=== PATIENT | female | born 1985 | race Caucasian/White ===

== ENCOUNTER 2017-05-22 19:42 | Inpatient (IN) | payer OTHER ==
[2017-05-22] VITALS (36 sets, daily range): BP systolic 109–155; BP diastolic 59–90; PULSE 79–225; RESP 18; TEMP 97.9
[~2017-05-22 19:42] MED LIST: DIPHTH/TETANUS/ACEL PERTUSSIS (BOOSTER) 0.5 ML VIAL/PFS IM ONE; MEASLES, MUMPS, RUBELLA VACCINE 0.5 ML VIAL SQ ONE; PERC5TAB12 PO; PREN0.01 PO
[2017-05-22] MEDS ORDERED: LACTATED RINGER'S 1000 ML INJ 1,000 ML IV SCH (20:08)
[2017-05-22] MEDS ORDERED: LACTATED RINGER'S 1000 ML INJ 1,000 ML IV PRN (20:08)
--- NOTE | 2017-05-22 20:08 | PD ---
HPI Chief Complaint Contractions Date Seen: May 22, 2017 Time Seen: 20:05 Travel History International Travel<30 Days: No Contact w/Intl Traveler<30Days: No Known Affected Area: No History of Present Illness HPI 31-year-old at 41 weeks and 1 day comes in complaining of worsening contractions. Patient had intermittent contractions this afternoon and was 5 cm in the office at 3 PM and in the past couple of hours contractions have increased in intensity. Her last 2 deliveries went very quick and she would like to have an epidural with this one. She is a history of a hemorrhage with her first child but otherwise no issues with her previous pregnancies and has no consultations. History Past Medical History Narrative Medical Asthma on albuterol Obstetric History Obstetric History Spontaneous vaginal delivery 2 Miscarriage Past Surgical History Surgical History: No Previous Surgery Family History Family History: Negative Social History Alcohol Use: No Tobacco Use: No Substance Abuse: No Allergies-Medications (Allergen,Severity, Reaction): Coded Allergies: Sulfa (Sulfonamide Antibiotics) (Unverified Allergy, Severe, 05/22/17) penicillin G (Unverified Allergy, Severe, 05/22/17) Home Meds Reported Medications Oxycodone-Acetaminophen 5-325 mg (Percocet 5-325 mg)5 Mg/325 Mg Tab1 Tab PO Q4H #30 TAB 03/01/14 Multivit/Min/Fol Ac/Iron/Pren ( Vit ( Plus)) Tab1 Tab PO DAILY continue while 02/27/14 Review of Systems Except as stated in HPI: all other systems reviewed are Neg Physical Exam Narrative GENERAL: Well-nourished, well-developed patient. SKIN: Warm and dry. HEAD: Normocephalic and atraumatic. EYES: No scleral icterus. No injection or drainage. ENT: No nasal drainage noted. Mucous membranes pink. Airway patent. NECK: Supple, trachea midline. No JVD. CARDIOVASCULAR: Regular rate and rhythm without murmurs, gallops, or rubs. RESPIRATORY: Breath sounds equal bilaterally. No accessory muscle use. ABDOMEN/GI: Abdomen soft, non-tender, bowel sounds present, no rebound, no guarding Gravid to [38-] weeks size Fundal Height: [-] GENITOURINARY: External Genitalia: intact and normal in appearance BUS glands: [-Normal] Cervix: [-Mid position] Dilatation: [-5-6] Effacement: [100-] Station: [-2] Presentation: [Vertex-] Membranes: [intact ] Uterine Contractions: [-Every 5] FHT's: Category: [1-] Baseline: [-140] Reactive: [Moderate-] Variability: [Moderate-] Decels: [-Absent] EXTREMITIES: No cyanosis or edema. BACK: Nontender without obvious deformity. No CVA tenderness. NEUROLOGICAL: Awake and alert. Motor and sensory grossly within normal limits. Five out of 5 muscle strength in all muscle groups. Normal speech. Data Data Vital Signs Reviewed: Yes MDM Plan 31-year-old who is at 41 weeks and 1 day who is in active labor Group B strep is negative Patient desires epidural Diagnosis Diagnosis: Primary Impression: 41 weeks gestation of Additional Impressions: Intact amniotic membranes Irregular uterine contractions Екатерина Pimentel MD May 22, 2017 20:08
[2017-05-22] MEDS ORDERED: LIDOCAINE HCL 1% 50 ML VIAL INFIL PRN (20:15)
[2017-05-22] MEDS ORDERED: OXYTOCIN 30 UNITS-500ML PREMIX 500 ML IV ONE (20:15)
[2017-05-22] MEDS ORDERED: LIDOCAINE HCL 1% 50 ML VIAL I-DERMAL PRN (20:15)
[2017-05-22] MEDS ORDERED: CITRIC ACID-SODIUM CITRATE LIQ 30 ML UDC PO SCH (20:15)
[2017-05-22] MEDS ORDERED: SODIUM CHLORID 0.9% 500 ML INJ 500 ML IV PRN (20:15)
[2017-05-22] MEDS ORDERED: MINERAL OIL 10 ML VIAL TOPICAL PRN (20:15)
[2017-05-22] MEDS ORDERED: fentaNYL 2MCG-BUPIV 0.125% INJ 100 ML ONE (20:22)
[2017-05-22] MEDS ORDERED: SODIUM CHLOR 0.9% 1000 ML INJ 1,000 ML IV PRN (20:28)
[2017-05-22 20:34] LABS: AUTOMATED NEUTROPHIL # 7.2 TH/MM3 (1.8-7.7); BASOPHIL % 0.3 % (0.0-2.0); EOSINOPHIL # 0.1 TH/MM3 (0-0.4); EOSINOPHIL % 1.4 % (0.0-4.0); HEMATOCRIT 37.3 % (35.0-46.0); HEMO FLAGS DIFF FINAL; LYMPHOCYTE # 2.1 TH/MM3 (1.0-4.8); MEAN CELL VOLUME 94.7 FL (80.0-100.0); MEAN CORPUSCULAR HEMOGLOBIN 31.9 PG (27.0-34.0); MEAN CORPUSCULAR HGB CONC 33.7 % (32.0-36.0); MONO % 5.3 % (0.0-8.0); PLATELET COUNT 249 TH/MM3 (150-450); RED BLOOD COUNT 3.93 MIL/MM3 (4.00-5.30); RED CELL DISTRIBUTION WIDTH 13.1 % (11.6-17.2)
[2017-05-22] MEDS ORDERED: ePHEDrine/NS 25 MG/5 ML SYR IV PRN (22:00)
[2017-05-22] MEDS ORDERED: NO SYSTEM NARCOTICS PRN (22:00)
[2017-05-22] MEDS ORDERED: DO NOT ADMINISTER ANTICOAGULANTS PRN (22:00)
[2017-05-22] MEDS ORDERED: fentaNYL 2MCG-BUPIV 0.125% 100 ML EPIDURAL SCH (22:00)
[2017-05-22 22:31] LABS: BLOOD, URINE NEG (NEG); GLUCOSE,URINE NEG (NEG); KETONE, URINE NEG (NEG); NITRITE,URINE NEG (NEG); PH, URINE 6.5 (5.0-8.5); URINE COLOR LIGHT-YELLOW (YELLW/STRAW)
[2017-05-22 22:32] LABS: COMMENT (UR) CULT NOT INDICATED; CULTURE IF INDICATED CULT NOT INDICATED
--- NOTE | 2017-05-22 23:48 | PD.OB.DELI ---
Delivery Date: May 22, 2017 Anesthesia: Epidural Episiotomy: None Vaginal Delivery: Normal, Spontaneous Presentation: Occiput anterior Nuchal Cord: x1 Delayed cord clamping (45 sec): Yes : Male, Single One Minute : 8 Five Minute : 9 Weight: 7#12oz Placenta: Spontaneous delivery, Intact, 3 vessel cord Laceration: No lacerations Estimated blood loss: 300 Mathew Moralez MD May 22, 2017 23:48
--- NOTE | 2017-05-22 23:51 | HHI.DCPOC ---
Discharge Care Plan Diagnosis: (1) Spontaneous vaginal delivery Report Symptoms to Your Doctor -Temperature above 100.5 degrees -Redness, of incision or excessive or foul smelling drainage -Unusual pain or calf pain -Increased vaginal bleeding -Painful or difficulty urinating -Feelings of extreme sadness or anxiety after 2 weeks Goals to Promote Your Health * To prevent worsening of your condition and complications * To maintain your health at the optimal level Directions to Meet Your Goals Take your medications as prescribed Follow your dietary instruction Follow activity as directed Ensure plenty of rest for recovery Drink fluids for hydration Keep your appointments as scheduled Take your immunizations and boosters as scheduled If your symptoms worsen call your PCP, if no PCP go to Urgent Care Center or Emergency Room Smoking is Dangerous to Your Health. Avoid second hand smoke Call the 24-hour crisis hotline for domestic abuse at Mathew Moralez MD May 22, 2017 23:50
[2017-05-23] VITALS (15 sets, daily range): BP systolic 88–123; BP diastolic 52–83; PULSE 74–94; RESP 16–18; TEMP 97.9–98.4
[2017-05-23] MEDS ORDERED: BENZOCAINE 20% TOPICAL SPRAY 60 ML CAN TOPICAL PRN
[2017-05-23] MEDS ORDERED: oxyCODONE/ACETAMINOPHEN 5 MG/325 MG TAB PO PRN
[2017-05-23] MEDS ORDERED: ONDANSETRON ODT 4 MG TAB PO PRN
[2017-05-23] MEDS ORDERED: OXYTOCIN 30 UNITS-500ML PREMIX 500 ML IV SCH
[2017-05-23] MEDS ORDERED: SODIUM CHLORIDE 0.9% FLUSH 10 ML FLUSH IV FLUSH PRN
[2017-05-23] MEDS ORDERED: ZOLPIDEM TARTRATE 5 MG TAB PO PRN
[2017-05-23] MEDS ORDERED: ALUMINUM/MAGNESIUM/SIMETH 30 ML CUP PO PRN
[2017-05-23] MEDS ORDERED: WITCH HAZEL 50%/GLYCERIN 12.5% 40 PAD JAR TOPICAL PRN
[2017-05-23] MEDS ORDERED: AMMONIA AROMATIC INHALANT 0.33 ML ONE (02:49)
[2017-05-23] MEDS: DOCUSATE SODIUM 50 MG/SENNA 8.6 MG TAB PO PRN ×2 (03:21→14:45)
[2017-05-23] MEDS: IBUPROFEN 600 MG TAB PO PRN ×4 (03:22→20:58)
[2017-05-23] MEDS: ACETAMINOPHEN 325 MG TAB PO PRN ×2 (03:22→09:29)
[2017-05-23] MEDS ORDERED: SODIUM CHLORIDE 0.9% FLUSH 10 ML FLUSH IV FLUSH SCH (09:00)
--- NOTE | 2017-05-23 11:57 | HHI.OB ---
Subjective Post Day: 1 Remarks pain controlled, mod lochia, alphonse po, +void/flatus Objective Vitals/I&O Vital Signs Date Time Temp Pulse Resp B/P Pulse Ox O2 Delivery O2 Flow Rate FiO2 05/23/17 09:30 98.4 05/23/17 09:30 86 16 88/60 05/23/17 02:45 98.4 18 05/23/17 02:45 77 113/71 05/23/17 01:30 74 115/70 05/23/17 01:26 18 05/23/17 01:16 81 105/52 05/23/17 01:15 18 05/23/17 01:00 75 120/72 05/23/17 00:45 79 122/75 05/23/17 00:45 18 05/23/17 00:30 76 122/78 05/23/17 00:25 78 111/76 05/23/17 00:24 97.9 18 05/23/17 00:24 97.9 18 05/23/17 00:15 18 05/23/17 00:15 83 123/83 05/23/17 00:15 83 123/83 05/23/17 00:00 94 117/82 05/23/17 00:00 94 117/82 05/22/17 23:57 18 05/22/17 23:46 93 110/69 05/22/17 23:45 18 05/22/17 23:30 225 117/90 05/22/17 23:20 90 05/22/17 23:20 90 05/22/17 23:15 91 119/72 05/22/17 23:15 91 119/72 05/22/17 23:15 81 05/22/17 23:00 97 05/22/17 23:00 92 109/69 05/22/17 22:50 86 05/22/17 22:45 92 114/77 05/22/17 22:45 90 05/22/17 22:43 18 05/22/17 22:40 88 05/22/17 22:35 88 05/22/17 22:30 89 114/59 05/22/17 22:30 86 05/22/17 22:20 89 05/22/17 22:15 83 05/22/17 22:15 87 111/63 05/22/17 22:02 18 05/22/17 22:00 90 05/22/17 22:00 93 111/60 05/22/17 21:55 90 05/22/17 21:50 91 05/22/17 21:45 86 05/22/17 21:45 94 117/71 05/22/17 21:32 97.9 05/22/17 21:30 88 18 124/68 05/22/17 21:30 79 05/22/17 21:20 85 05/22/17 21:20 91 120/73 05/22/17 21:15 87 05/22/17 21:10 96 05/22/17 21:10 92 113/69 05/22/17 21:05 94 05/22/17 21:01 96 116/69 05/22/17 21:00 97 116/78 05/22/17 21:00 99 05/22/17 20:58 18 05/22/17 20:55 98 155/74 05/22/17 20:55 88 05/22/17 20:50 92 05/22/17 20:50 96 130/82 05/22/17 20:45 91 130/81 05/22/17 20:44 87 134/77 05/22/17 20:36 18 05/22/17 20:26 94 140/86 05/22/17 20:00 104 125/86 Objective Remarks GENERAL: Well-nourished, well-developed patient. CARDIOVASCULAR: Regular rate and rhythm without murmurs, gallops, or rubs. RESPIRATORY: Breath sounds equal bilaterally. No accessory muscle use. ABDOMEN/GI: Abdomen soft, non-tender. Fundus: Firm, non-tender at umbilicus. GENITOURINARY: Light to moderate bleeding. EXTREMITIES: No cyanosis or edema, non-tender, without signs of DVT. Medications and IVs Current Medications Medications (Trade) Dose Ordered Sig/[place] Route Start Time Stop Time Status Last Admin (NS Flush) 2 ml BID IV FLUSH 05/23/17 09:00 (NS Flush) 2 ml UNSCH PRN IV FLUSH 05/23/17 00:00 (Tylenol) 650 mg Q4H PRN PO 05/23/17 00:00 05/23/17 09:29 (Motrin) 600 mg Q6H PRN PO 05/23/17 00:00 05/23/17 09:30 (Percocet 5-325 Mg) 1 tab Q4H PRN PO 05/23/17 00:00 (Percocet 5-325 Mg) 2 tab Q4H PRN PO 05/23/17 00:00 (Americaine 20% Top Spr) 1 spray Q4H PRN TOPICAL 05/23/17 00:00 05/23/17 03:21 (Tucks Pads) 1 applic QID PRN TOPICAL 05/23/17 00:00 05/23/17 03:22 (Marlene-Colace) 2 tab Q12H PRN PO 05/23/17 00:00 05/23/17 03:21 (Ambien) 5 mg HS PRN PO 05/23/17 00:00 (Mag-Al Plus Susp Liq) 15 ml Q8H PRN PO 05/23/17 00:00 (Zofran Odt) 4 mg Q6H PRN PO 05/23/17 00:00 Assessment/Plan Problem List: (1) Spontaneous vaginal delivery Plan: routine pp care Camacho Sanders MD May 23, 2017 11:57
[2017-05-23] MEDS: oxyCODONE/ACETAMINOPHEN 5 MG/325 MG TAB PO PRN ×2 (14:45→20:57)
[2017-05-24] MEDS: oxyCODONE/ACETAMINOPHEN 5 MG/325 MG TAB PO PRN ×2 (03:59→10:28)
[2017-05-24] MEDS: IBUPROFEN 600 MG TAB PO PRN ×2 (03:59→10:28)
[2017-05-24] MEDS: DOCUSATE SODIUM 50 MG/SENNA 8.6 MG TAB PO PRN (04:01)
[2017-05-24] MEDS ORDERED: IBUP-232 PO (13:12)
[2017-05-24] MEDS ORDERED: OXYC1TAB63 PO (13:12)
== END 2017-05-24 15:07 | disposition home or self-care (01) | DRG 775 ==
LOC: HOBED 19:42 → H2EB 20:17 → H1EA 05-23 02:04
PROVIDERS: ADMIT Obstetrics & Gynecology; ATTEND Obstetrics & Gynecology
PROC: 10E0XZZ Delivery of Products of Conception, External Approach (ICD-10-PCS; principal; 2017-05-22)
PROC: 3E0S3CZ (ICD-10-PCS; 2017-05-22)
PROC: 00HU33Z Insertion of Infusion Device into Spinal Canal, Percutaneous Approach (ICD-10-PCS; 2017-05-22)
DX: O48.0 Post-term pregnancy (principal); Z37.0 Single live birth; Z3A.41 41 weeks gestation of pregnancy
CPT/HCPCS: 59025; 76816; 76818; 81001; 85025; 90715